=== PATIENT | male | born 1990 | race Hispanic/Latino ===

== ENCOUNTER 2019-02-23 10:22 | Emergency (ER) | payer SELFPAY | END 2019-02-23 11:19 | disposition home or self-care (01) | LOC: ERS 10:22 | DX: K02.9 Dental caries, unspecified (principal) | CPT/HCPCS: 99282 ==

== ENCOUNTER 2022-12-26 16:15 | Emergency (ER) | payer SELFPAY ==
[2022-12-26] MEDS ORDERED: Morphine 4 MG/ML VIAL ONE (16:35)
[2022-12-26] MEDS ORDERED: HYDROmorphone 0.5 MG/0.5 ML SYRINGE ONE (17:50)
[2022-12-26] MEDS ORDERED: fentaNYL PF 100 MCG/2 ML SYRINGE ONE (19:36)
[2022-12-26] MEDS ORDERED: Bupivacaine HCl 0.5%/Epinephrine 1:200,000/PF 30 ml Vial ONE (19:54)
[2022-12-26] MEDS ORDERED: Bupivacaine/Epinephrine 0.25% 30 ML VIAL ONE (19:54)
[2022-12-26] MEDS ORDERED: Neomycin-Polymyxin 1 ML AMP ONE (19:55)
[2022-12-26 20:11] LABS: SARS-CoV-2 NAA Rapid Test DETECTED (NotDetected)
[2022-12-26] MEDS ORDERED: Lidocaine 1% PF 5 ML VIAL ONE (20:14)
[2022-12-26] MEDS ORDERED: PROPOFOL 200 MG/20 ML VIAL ONE (20:14)
[2022-12-26] MEDS ORDERED: Dexamethasone 20 MG/5 ML VIAL ONE (20:14)
[2022-12-26] MEDS ORDERED: Ondansetron PF 4 MG/2 ML Vial ONE (20:14)
[2022-12-26] MEDS ORDERED: Ketorolac Tromethamine 30 MG/ML VIAL ONE (20:14)
[2022-12-26] MEDS ORDERED: HYDROmorphone 2 MG/ML VIAL SLOW IVP PRN (21:30)
[2022-12-26] MEDS ORDERED: PACU-Morphine 4MG/ML VIAL SLOW IVP PRN (21:30)
[2022-12-26] MEDS ORDERED: Morphine Sulfate 2 MG/ML SYRINGE SLOW IVP PRN (21:30)
[2022-12-26] MEDS ORDERED: Promethazine HCl 25 MG/ML VIAL IM PRN (21:30)
[2022-12-26] MEDS ORDERED: Ondansetron HCl/PF 4 MG/2 ML Vial IVP PRN (21:30)
== END 2022-12-26 20:22 | disposition admitted as inpatient to this hospital (09) ==
LOC: ERS 16:15
DX: S60.852A Superficial foreign body of left wrist, initial encounter (principal); W29.4XXA Contact with nail gun, initial encounter; Z20.822 Contact with and (suspected) exposure to COVID-19
CPT/HCPCS: 96374; 96375; G0390; J1100; J1170; J1885; J2270; J2405; J2704; U0002